=== PATIENT | female | born 1995 | race Caucasian/White ===

== ENCOUNTER 2024-04-03 10:03 | Inpatient (IN) | payer OTHER ==
[2024-04-03] MEDS ORDERED: Acetaminophen 325 MG Tab PO PRN ×2 (10:23→13:07)
[2024-04-03] MEDS ORDERED: Calcium Carbonate 500 MG Tab.Chew PO PRN (10:23)
[2024-04-03] MEDS ORDERED: Nalbuphine 10 MG/ML Syringe IVPUSH PRN (10:23)
[2024-04-03] MEDS ORDERED: Ondansetron 4 MG/2 ML SDV IVPUSH PRN (10:23)
[2024-04-03] MEDS ORDERED: Oxytocin/Lactated Ringers 30 UNIT/500 ML BAG IV SCH (10:30)
[2024-04-03 10:47] LABS: BASOPHILS PERCENT AUTO 0.2 % (0.0-1.0); EOSINOPHILS PERCENT AUTO 0.1 % (0.0-6.0); HEMATOCRIT 42.3 % (37.0-47.0); HEMOGLOBIN 14.9 gm/dl (12.0-16.0); IMMATURE GRAN ABSOLUTE AUTO 0.09 K/mm3 (0.00-0.05); IMMATURE GRAN PERCENT AUTO 0.5 % (0.0-0.4); LYMPHOCYTES ABSOLUTE AUTO 2.1 K/mm3 (1.0-4.8); LYMPHOCYTES PERCENT AUTO 11.6 % (24.0-44.0); MEAN CORPUSCULAR HEMOGLOBIN 31.6 pg (28.0-32.0); MEAN CORPUSCULAR HGB CONC 35.2 g/dl (32.0-36.0); MEAN CORPUSCULAR VOLUME 89.6 fl (83.0-99.0); MONOCYTES PERCENT AUTO 5.2 % (0.0-8.0); NEUTROPHILS ABSOLUTE AUTO 14.9 K/mm3 (1.8-7.7); NEUTROPHILS PERCENT AUTO 82.4 % (41.0-71.0); PLATELET COUNT,PLT 211 K/mm3 (150-400); RED BLOOD CELL COUNT 4.72 M/mm3 (4.10-5.30); WHITE BLOOD CELL COUNT,WBC 18.15 K/mm3 (3.9-11.3)
[2024-04-03] MEDS: Lactated Ringers 1,000 ML IV SCH (11:00)
[2024-04-03] MEDS: Lidocaine 1% 50 ML MDV INJECT PRN (11:35)
[2024-04-03] MEDS: Oxytocin/Lactated Ringers 30 UNIT/500 ML BAG IV SCH (11:36)
[2024-04-03] MEDS: fentaNYL 100 MCG/2 ML SDV IVPUSH STA (11:56)
[2024-04-03] MEDS: ceFAZolin 2 GM in Sodium Chloride 0.9% 50 ML IV STA (12:22)
[2024-04-03] MEDS ORDERED: Docusate Sodium 100 MG Cap PO PRN (13:07)
[2024-04-03] MEDS: Ibuprofen 600 MG Tab PO SCH (13:14)
[2024-04-03] MEDS: Witch Hazel Medicated Pads 40/Jar TOP PRN (13:15)
[2024-04-03] MEDS: Benzocaine/Menthol 20%-0.5% Spray 78 GM Cannister TOP PRN (13:15)
[2024-04-03] MEDS: Docusate Sodium 100 MG Cap PO SCH (20:46)
== END 2024-04-05 12:25 | disposition home or self-care (01) | DRG 807 ==
LOC: JD.OBCHECK 10:03 → JD.OB 10:10 → JD.OBCHECK 10:24 → JD.OB 11:30 → OBSVTOIN 12:28
PROVIDERS: ADMIT Obstetrics & Gynecology; ATTEND Obstetrics & Gynecology
PROC: 10E0XZZ Delivery of Products of Conception, External Approach (ICD-10-PCS; principal; 2024-04-03)
PROC: 10D17Z9 Manual Extraction of Products of Conception, Retained, Via Natural or Artificial Opening (ICD-10-PCS; 2024-04-03)
PROC: 0UQMXZZ Repair Vulva, External Approach (ICD-10-PCS; 2024-04-03)
DX: O73.0 Retained placenta without hemorrhage (principal); Z37.0 Single live birth; O70.0 First degree perineal laceration during delivery; Z3A.39 39 weeks gestation of pregnancy
CPT/HCPCS: 36415; 51701; 59025; 59409; 85025; 86592; 86850; 86900; 86901; A9270-GY; C1758; J0690; J2001; J3010; J3490; J7120; J7999